=== PATIENT | female | born 1985 | race Caucasian/White ===

== ENCOUNTER 2017-11-14 08:55 | Observation (INO) | payer OTHER ==
[~2017-11-14] VITALS: Ht 160 cm; Wt 75.3 kg
[~2017-11-14 08:55] MED LIST: PREN-134 PO
[2017-11-14 09:58] VITALS: BP 102/67
== END 2017-11-14 10:50 | disposition home or self-care (01) ==
LOC: 4S 08:55
PROVIDERS: ADMIT Obstetrics & Gynecology; ATTEND Obstetrics & Gynecology
DX: O62.9 Abnormality of forces of labor, unspecified (principal); O26.893 Other specified pregnancy related conditions, third trimester; R10.2 Pelvic and perineal pain; Z3A.37 37 weeks gestation of pregnancy
CPT/HCPCS: 59025; G0378

== ENCOUNTER 2017-11-16 15:05 | Inpatient (IN) | payer OTHER ==
[~2017-11-16] VITALS: Ht 160 cm; Wt 76.2 kg
[2017-11-16] MEDS ORDERED: OXYTOCIN 30 UNITS/LACT RINGERS 500 ML IV PRN ×2 (15:41→18:31)
[2017-11-16] MEDS ORDERED: RINGERS SOLUTION,LACTATED 1,000 ML IV SCH (15:41)
[2017-11-16] MEDS ORDERED: RINGERS SOLUTION,LACTATED 1,000 ML IV PRN (15:41)
[2017-11-16] MEDS ORDERED: METOCLOPRAMIDE HCL 5 MG/ML 2 ML VIAL IVP PRN (15:45)
[2017-11-16] MEDS ORDERED: CITRIC ACID/SODIUM CITRATE 30 ML SOLUTION UDCUP PO PRN (15:45)
[2017-11-16] MEDS ORDERED: FentaNYL CITRATE-PF 100 MCG/2 ML VIAL IVP PRN (15:45)
[2017-11-16 16:39] LABS: BASOPHILS % (AUTO) 0.4 % (0.0-2.0); EOSINOPHILS % (AUTO) 0.8 % (1.0-6.0); HEMATOCRIT 33.4 % (36-46); HEMOGLOBIN 11.5 g/dL (12.0-16.0); LYMPHOCYTES # (AUTO) 1.6 K/uL (1.0-4.8); MEAN CORPUSCULAR HEMOGLOBIN 31.3 pg (26.0-34.0); MEAN CORPUSCULAR HGB CONC 34.6 G/dL (31.0-37.0); MEAN CORPUSCULAR VOLUME 91 fL (80-100); MONOCYTES # (AUTO) 0.5 K/uL (0.1-1.0); MONOCYTES % (AUTO) 5.9 % (2.0-9.0); NEUTROPHILS # (AUTO) 5.7 K/uL (1.8-7.7); NEUTROPHILS % (AUTO) 72.9 % (40.0-70.0); PLATELET COUNT (AUTO)-OB 233 K/uL (150-450); RED BLOOD CELL COUNT(AUTO) 3.69 MIL/uL (4.00-5.20)
[2017-11-16 16:50] VITALS: BP 121/75
[2017-11-16] MEDS ORDERED: ROPIVACAINE HCL 0.2% 100 ML ED ONE (18:12)
[2017-11-16] MEDS ORDERED: LIDOCAINE HCL/PF 2% 5 ML VIAL ONE (18:12)
[2017-11-16] MEDS ORDERED: DiphenhydrAMINE HCL 50 MG/ML VIAL IVP PRN (18:30)
[2017-11-16] MEDS ORDERED: PROMETHAZINE HCL 12.5 MG in SODIUM CHLORIDE 0.9% 50 ML IV PRN (18:30)
[2017-11-16] MEDS ORDERED: NALBUPHINE HCL 10 MG/ML VIAL IVP PRN (18:30)
[2017-11-16] MEDS ORDERED: ONDANSETRON HCL 4 MG/2 ML VIAL IVP PRN (18:30)
[2017-11-16] MEDS ORDERED: ROPIVACAINE HCL 0.2% 100 ML ED PRN (18:30)
[2017-11-16] MEDS ORDERED: ACETAMINOPHEN/CODEINE 300-30 MG TABLET PO PRN ×2 (19:30)
[2017-11-16] MEDS ORDERED: BENZOCAINE 20%/MENTHOL 56 GM SPRAY CANISTER TP PRN (19:30)
[2017-11-16] MEDS ORDERED: GLYCERIN/WITCH HAZEL LEAF 40 PADS JAR TP PRN (19:30)
[2017-11-16] MEDS ORDERED: LANOLIN 7 GM OINTMENT TP PRN (19:30)
[2017-11-16] MEDS ORDERED: OXYGEN THERAPY IH SCH (20:00)
[2017-11-16] MEDS ORDERED: MAGNESIUM HYDROXIDE SUSPENSION 30 ML UDCUP PO SCH (21:00)
[2017-11-16] MEDS: IBUPROFEN 800 MG TABLET PO SCH (22:40)
[2017-11-16 23:04] LABS: RUBELLA SCREEN (IGG) IMMUNE (IMMUNE)
[2017-11-17] MEDS: IBUPROFEN 800 MG TABLET PO SCH ×3 (06:09→18:11)
[2017-11-17] MEDS ORDERED: IBUP-2070 PO (18:23)
[2017-11-17] MEDS ORDERED: FERR-89 PO (18:25)
[2017-11-17] MEDS ORDERED: DSS100 PO (18:26)
== END 2017-11-17 20:45 | disposition home or self-care (01) | DRG 560 ==
LOC: 4S 15:05 → OBSVTOIN 15:05
PROVIDERS: ADMIT Obstetrics & Gynecology; ATTEND Obstetrics & Gynecology
PROC: 10E0XZZ Delivery of Products of Conception, External Approach (ICD-10-PCS; principal; 2017-11-16)
PROC: 3E0R3BZ Introduction of Anesthetic Agent into Spinal Canal, Percutaneous Approach (ICD-10-PCS; 2017-11-16)
PROC: 00HU33Z Insertion of Infusion Device into Spinal Canal, Percutaneous Approach (ICD-10-PCS; 2017-11-16)
DX: O80 Encounter for full-term uncomplicated delivery (principal); Z37.0 Single live birth; Z3A.37 37 weeks gestation of pregnancy
CPT/HCPCS: 86592; 86762; 86850; 86900; 86901; 87340; J2590; J2795; J3490; J7120